=== PATIENT | male | born 1945 | race Caucasian/White ===

== ENCOUNTER 2019-01-23 10:39 | Day surgery (SDC) | payer OTHER, BC ==
[2019-01-13 16:28] VITALS: BMI 25.8
--- NOTE | 2019-01-23 09:03 | OP ---
Operative Note - Note: Operative Date: 01/23/19 Pre-Operative Diagnosis: Rotator cuff tear Operation: Shoulder arthroscopy with rotator cuff repair Post-Operative Diagnosis: Same as Pre-op Surgeon: Mike Palmer [employer] Commander Deputy Sheriff: Norma Tyler Anesthesia: Fractional Operative Report Dictated: Yes
[2019-01-23] MEDS ORDERED: ROPIVACAINE HCL 0.5% 30ML VIAL ONE (11:51)
[2019-01-23] MEDS ORDERED: MIDAZOLAM HCL 2 MG/2 ML SINGLE DOSE VIAL ONE (11:51)
[2019-01-23] MEDS ORDERED: LIDOCAINE HCL/PF 2% SDV 5ML VIAL ONE (12:20)
[2019-01-23] MEDS ORDERED: ceFAZolin SODIUM 1 GM VIAL ONE (12:55)
[2019-01-23] MEDS ORDERED: PROPOFOL 20 ML ONE (13:52)
[2019-01-23 15:39] VITALS: TEMP 98.4
--- NOTE | 2019-01-23 15:40 | OP ---
DATE OF OPERATION: 01/23/2019 PREOPERATIVE DIAGNOSIS: Right shoulder rotator cuff tear, biceps tendinopathy, impingement. POSTOPERATIVE DIAGNOSIS: Right shoulder rotator cuff tear, biceps tendinopathy, impingement. PROCEDURE: Right shoulder arthroscopy with rotator cuff repair, debridement of glenohumeral joint including the labrum and subscapularis insertion and synovium, tenotomy of the biceps, subacromial decompression. SURGEON: Mike Trejo MD EXCEPTIONAL STUDENT EDUCATION TEACHER: Norma Tyler, physician's assistant store director, whose skillful assistance was necessary for the safe and timely performance of this procedure. Ms. Tyler was able to supply limb positioning, retraction, assistance driving the camera, suture passing, and insertion of orthopedic fixation hardware. ANESTHESIA: Regional plus sedation. POSTOPERATIVE CONDITION: Stable. COMPLICATIONS: None. IMPLANTS: [employer] SpeedBridge kit with 4 SwiveLock anchors. INDICATIONS: This is a pleasant 73-year-old gentleman who has been suffering from right shoulder pain. MRI demonstrated rotator cuff tear. Treatment options were discussed, including nonoperative versus operative . Operative risks were reviewed in detail including bleeding, infection, neurovascular injury, need for further surgery, postoperative pain and stiffness, failure to heal, or re-tear. We discussed medical risks such as heart attack, stroke, DVT, PE, and . We discussed the use of preoperative antibiotic and DVT prophylaxis. I addressed the lengthy rehabilitation protocol. I addressed all the patient's questions and concerns. He voiced understanding and elected to proceed. DESCRIPTION OF PROCEDURE: Patient was brought to the operating room after administration of regional block in the preoperative holding area. The patient was placed in the beach chair position while awake, careful to pad all the bony prominences. Care was also used to maintain the cervical spine in neutral positioning. The right upper extremity was then examined, demonstrating full range of motion and good stability. The patient was then prepped and draped in the usual sterile fashion. A preoperative dose of antibiotics given, and the usual timeout procedure was performed. The shoulder landmarks were then marked out. A posterior viewing portal was established with an 11-blade. The arthroscope was passed into the glenohumeral joint. Passing arthroscope into the joint demonstrated moderate partial-thickness articular wear on the glenoid and mild articular wear on the humeral surfaces. There was diffuse degenerative fraying of the labrum 360 degrees. The biceps demonstrated degenerative changes and fraying as well. The subscapularis superior border was frayed, although no gross tear was apparent. An anterior portal was now established. Shaver as well as electrocautery was used to debride the labrum, as well as debriding some of the synovium which was quite erythematous. The superior border of the subscapularis was debrided, demonstrating that the vast majority of the tendon was intact, and it was only some fraying at the border. The biceps was tenotomized and the base was smoothed down utilizing the shaver as well as straight biter. The supraspinatus was clearly torn off of the greater tuberosity with a full-thickness tear with minimal retraction. The arthroscope was now withdrawn into the subacromial space. Here, impingement morphology was noted with fraying of the undersurface of the acromion and extensive bursitis. The RF wand was used to debride the bursa, as well as a shaver. The shaver was then used to perform a bony decompression. The tear was now visualized. A shaver was used to decorticate the area of bone about the rotator cuff insertion. A 0.062 K-wire was used to make multiple trephinations into the area to allow for bleeding bone. The punch was then used to insert 2 SwiveLock anchors in the medial row utilizing a lateral portal. The sutures were now passed using a Firstpass suture passer in a medial row construct. Sutures were now cut into individual strands. They were loaded into lateral anchors which were then punched in a crossing fashion, providing a double-row repair. Shoulder was now passed through a range of motion. The tear was stable for the most part. There was a small anterior leaf which still had some mobility to it. Using that anterior most lateral row anchor, the 3 sutures were then passed in simple fashion through the anterior leaf and then tied down, securing the entirety of the repair. It was now passed through a range of motion and found to be stable. At this point, the excess fluid was withdrawn from the joint. The portals were sutured using 3-0 nylon. Sterile dressings were placed. The patient was placed in a sling. He was transferred to the recovery room in stable condition. MIKE TREJO M.D. [id number]
[2019-01-23 16:18] VITALS: BP 124/76; PULSE 73
== END 2019-01-23 16:21 | disposition home or self-care (01) ==
LOC: FASU 10:39
PROVIDERS: ATTEND Orthopaedic Surgery Sports Medicine
PROC: 0RNJ4ZZ Release Right Shoulder Joint, Percutaneous Endoscopic Approach (ICD-10-PCS; 2019-01-23)
PROC: 0RBJ4ZZ Excision of Right Shoulder Joint, Percutaneous Endoscopic Approach (ICD-10-PCS; 2019-01-23)
PROC: 0RNJ4ZZ Release Right Shoulder Joint, Percutaneous Endoscopic Approach (ICD-10-PCS; 2019-01-23)
PROC: 0LQ14ZZ Repair Right Shoulder Tendon, Percutaneous Endoscopic Approach (ICD-10-PCS; principal; 2019-01-23 13:11)
DX: M75.101 Unspecified rotator cuff tear or rupture of right shoulder, not specified as traumatic (principal); M75.41 Impingement syndrome of right shoulder; M75.21 Bicipital tendinitis, right shoulder
CPT/HCPCS: 94760